=== PATIENT | male | born 1990 | race Caucasian/White ===

== ENCOUNTER 2022-09-19 08:11 | Outpatient (CLI) | payer BC, SELFPAY ==
[2022-09-19 21:20] LABS: Alanine Aminotransferase 25 U/L (6-50); Albumin Level 4.7 g/dL (3.5-5.1); Alkaline Phosphatase 67 U/L (38-126); Anion Gap 6 mmol/L (8-16); Aspartate Amino Transferase 44 U/L (17-59); Bilirubin,Total 0.7 mg/dL (0.2-1.3); Blood Urea Nitrogen 22 mg/dL (9-20); Calcium 9.3 mg/dL (8.4-10.2); Carbon Dioxide 30 mmol/L (22-30); Chloride 101 mmol/L (98-107); Cholesterol 163 mg/dL (0-200); Estimated Glomerular Filt Rate > 60; Glucose 87 mg/dL (65-110); HDL Direct 51 mg/dL; Potassium 4.6 mmol/L (3.4-5.0); Sodium 137 mmol/L (137-145); Triglycerides 51 mg/dL (<150)
[2022-09-19 21:21] LABS: Eosinophils Absolute Auto 0.1 K/mm3 (0-0.3); Eosinophils Percent Auto 1.9 % (0-4.4); Hematocrit 46.4 % (42.0-52.0); Hemoglobin 15.5 g/dL (14.0-18.0); Lymphocytes Absolute Auto 1.34 K/mm3 (0.9-3.2); Lymphocytes Percent Auto 32.5 % (18.3-44.2); Mean Corpuscular HGB Conc 33.4 g/dl (32-36); Mean Corpuscular Hemoglobin 31.1 pg (26-34); Monocytes Absolute Auto 0.5 K/mm3 (0.1-0.6); Monocytes Percent Auto 11.4 % (2.6-8.5); Neutrophils Absolute Auto 2.2 K/mm3 (1.3-6.7); Neutrophils Percent Auto 53.2 % (45.5-73.1); Platelet Count Result 185 k/mm3 (150-375); Red Blood Count 4.99 M/mm3 (4.6-6.20); Red Cell Distribution Width 11.6 % (11.5-14.5); White Blood Count 4.1 K/mm3 (4.5-10.0)
[2022-09-19 21:32] LABS: LDL Cholesterol Direct 77 mg/dL
== END 2022-09-19 08:12 | disposition home or self-care (01) ==
LOC: ANHGOSHLAB 08:13
PROVIDERS: PCP Family Medicine; Visit Provider Family Medicine
DX: Z00.00 Encounter for general adult medical examination without abnormal findings (principal)
CPT/HCPCS: 36415; 80053; 80061; 85025

== ENCOUNTER 2022-12-21 08:00 | Outpatient (RCR) | payer BC, SELFPAY ==
--- NOTE | 2022-12-07 16:44 | PTOPEVAL1 ---
Assessment and note entered by Mali Guzman, PT, DPT Evaluation Information Assessment Status Evaluation Diagnosis R knee pain Onset chronic Subjective Information Pt states he had knee surgery when he was 20 years old. He states he has been pretty active throughout his adult life without must pain. He states his pain has very gradually increased over the last couple of years. He states he feels like his knee is unstable side to side and feels like it might give out on him. He states he has stopped running d/t the pain but still does a lot of biking. He states some weeks he will have a very mild pain, and other weeks it hurts so bad it gets hard to walk and stand. Pt has a desk job. Reported Pain Level Pain Score 4: Self Report Assessment PT Clinical Summary Rob presents to therapy today for his initial evaluation with a diagnosis of R knee pain . Today he demonstrates asymmetrical lower leg torsional forces during ambulation, jogging, and open and closed chair knee extension. He demonstrates improved medial and lateral knee control once his knee is slightly flexed in standing allowing stability from a quad contraction. Special tests of the knee were negative. Skilled physical therapy services are indicated to address the deficits noted above, to improve knee stability, to manage pain, and to return to baseline function. Plan of Care Interventions Electrical Stimulation,Gait Training,Hot Pack/Cold Pack,Manual Therapy,Neuro Re-education,Patient/ Caregiver Educati,Therapeutic Activities, Therapeutic Exercise PT Services Indicated Yes Treatment Frequency and 1x/wk for 4 wks Duration These treatments will address the objective and functional deficits as defined above. The patient will be advanced safely and appropriately in order for the patient to progress towards his/her prior level of function. Additional exercises will be introduced and as well as a comprehensive home exercise program upon discharge, if needed, ?to ensure carryover of functional gains achieved in the clinic. This treatment plan has been reviewed and agreement upon by the patient.
--- NOTE | 2022-12-27 09:20 | PCPTNOTE ---
Patient did not show up for scheduled appointment this date. Called and left voicemail with instructions to call clinic to follow up.
--- NOTE | 2022-12-27 09:45 | PTOPDC ---
Assessment and note entered by Mali Guzman, PT, DPT Evaluation Information Assessment Status Discharge - Pt Not Present Diagnosis R knee pain Onset chronic Subjective Information Pt called and states he is doing well and does not need to return to therapy. He will therefore be discharged at this time. Assessment PT Clinical Summary Patient completed 3 visits of skilled therapy from 12/07/22 to 12/21/22. Plan of Care PT Services Indicated No
== END 2022-12-27 14:31 | disposition home or self-care (01) ==
LOC: ANHGOSHPT 08:00
PROVIDERS: PCP Family Medicine; Visit Provider Family Medicine
DX: M23.90 Unspecified internal derangement of unspecified knee (principal)
CPT/HCPCS: 97110; 97112; 97161; 99199

== ENCOUNTER → 2023-05-11 14:38 | Outpatient (CLI) | payer BC, SELFPAY ==
--- NOTE | ~2023-05-11 | US_ITS ---
US scrotum doppler INDICATION: Left testicular pain TECHNIQUE: Testicular sonogram utilizing grayscale and color Doppler FINDINGS: The testes are normal in size. No focal lesions are seen. The right testes measures 3.6 x 3 .2 x 2.8 cm centimeters, and the left testis measures 4.3 x 2.8 x 2.5 cm cm. There are bilateral test icular calcifications, consistent with testicular microlithiasis. There is normal vascular flow to dontrell th testes. The right and left epididymides appear normal. There is no varicocele or hydrocele. IMPRESSION: 1. Testicular microlithiasis. Reviewed, dictated and finalized at location L.
--- NOTE | ~2023-05-11 | XR_ITS ---
EXAMINATION: XR lumbar spine min 4V DATE: 05/11/2023 14:56 INDICATION: Low back pain. Left leg and groin pain. TECHNIQUE: 5 views of lumbar spine were obtained. COMPARISON: None. FINDINGS: There is 4 degrees dextrocurvature of lumbar spine. There is 3 mm anterolisthesis of L5 on S1. Vertebral body heights and intervertebral disc heights are normal. There are endplate osteophytes at multiple levels. There is multilevel mild facet joint osteoarthritis. At L5-S1, there is severe r ight and moderate left facet joint osteoarthritis. IMPRESSION: 1. Mild lumbar spondylosis. Reviewed, dictated and finalized at location E. IMPRESSION: 1. Mild lumbar spondylosis.
== END ==
PROVIDERS: PCP Family Medicine; Visit Provider Family Medicine
DX: N50.812 Left testicular pain (principal); N50.89 Other specified disorders of the male genital organs; M54.50 Low back pain, unspecified; M47.816 Spondylosis without myelopathy or radiculopathy, lumbar region
CPT/HCPCS: 72110; 76870; 93976

== ENCOUNTER 2024-04-18 06:53 | Outpatient (CLI) | payer BC, SELFPAY ==
--- NOTE | ~2024-04-18 | XR_ITS ---
Right Knee Technique: AP, lateral, and sunrise views were obtained. Clinical History: Osteoarthritis Findings: No fracture or dislocation is seen. Osseous alignment is anatomic. Minimal degenerative spu rring noted. Soft tissues are unremarkable. No joint effusion is seen. Impression: Minimal degenerative spurring. Reviewed, dictated and finalized at location . Impression: Minimal degenerative spurring.
== END 2024-04-18 06:54 | disposition home or self-care (01) ==
PROVIDERS: PCP Family Medicine; Visit Provider Orthopaedic Surgery
DX: M17.11 Unilateral primary osteoarthritis, right knee (principal)
CPT/HCPCS: 73564

== ENCOUNTER 2024-09-02 07:56 | Outpatient (CLI) | payer BC, SELFPAY ==
[2024-09-02 13:20] LABS: Basophils Absolute Auto 0.1 K/mm3 (0.0-0.1); Basophils Percent Auto 0.9 % (0.2-1.2); Eosinophils Absolute Auto 0.1 K/mm3 (0-0.3); Eosinophils Percent Auto 1.4 % (0-4.4); Hematocrit 47.5 % (42.0-52.0); Hemoglobin 15.5 g/dL (14.0-18.0); Immature Granulocyte Absolute 0.02 K/mm3 (0.00-0.031); Immature Granulocyte Percent A 0.3 % (0-0.5); Lymphocytes Absolute Auto 1.59 K/mm3 (0.9-3.2); Mean Corpuscular HGB Conc 32.6 g/dl (32-36); Mean Corpuscular Hemoglobin 30.7 pg (26-34); Mean Corpuscular Volume 94.1 fl (80-100); Mean Platelet Volume 12.3 fl (7.4-10.4); Monocytes Absolute Auto 0.6 K/mm3 (0.1-0.6); Monocytes Percent Auto 9.9 % (2.6-8.5); Neutrophils Absolute Auto 3.6 K/mm3 (1.3-6.7); Neutrophils Percent Auto 60.5 % (45.5-73.1); Platelet Count Result 227 k/mm3 (150-375); Red Blood Count 5.05 M/mm3 (4.6-6.20); Red Cell Distribution Width 11.8 % (11.5-14.5); White Blood Count 5.9 K/mm3 (4.5-10.0)
[2024-09-02 13:40] LABS: Alanine Aminotransferase 28 U/L (6-50); Albumin Level 4.7 g/dL (3.5-5.1); Alkaline Phosphatase 66 U/L (38-126); Anion Gap 10 mmol/L (4-12); Aspartate Amino Transferase 43 U/L (17-59); Bilirubin,Total 0.8 mg/dL (0.2-1.3); Blood Urea Nitrogen 19 mg/dL (9-20); Calcium 9.4 mg/dL (8.4-10.2); Carbon Dioxide 30 mmol/L (22-30); Chloride 102 mmol/L (98-107); Cholesterol 173 mg/dL (0-200); Estimated Glomerular Filt Rate > 60; Glucose 81 mg/dL (65-110); HDL Direct 41 mg/dL; Potassium 4.8 mmol/L (3.4-5.0); Sodium 142 mmol/L (137-145); Triglycerides 70 mg/dL (<150)
[2024-09-02 13:51] LABS: LDL Cholesterol Direct 95 mg/dL
== END 2024-09-02 07:57 | disposition home or self-care (01) ==
LOC: ANHGOSHLAB 07:57
PROVIDERS: PCP Family Medicine; Visit Provider Family Medicine
DX: Z00.00 Encounter for general adult medical examination without abnormal findings (principal)
CPT/HCPCS: 36415; 80053; 80061; 85025